=== PATIENT | female | born 1990 | race Caucasian/White ===

== ENCOUNTER 2017-09-01 18:09 | Emergency (ER) | payer SELFPAY ==
[~2017-09-01] VITALS: Wt 84.0 kg
[~2017-09-01 18:09] MED LIST: PREN1TAB49
== END 2017-09-01 22:06 | disposition left against medical advice (07) ==
LOC: FTE 18:09
DX: Z53.21 Procedure and treatment not carried out due to patient leaving prior to being seen by health care provider (principal)